=== PATIENT | male | born 1955 | race Caucasian/White ===

== ENCOUNTER 2017-03-24 03:18 | Emergency (ER) | payer OTHER, MEDICARE ==
[~2017-03-24] VITALS: Ht 193 cm; Wt 154.2 kg
--- NOTE | 2017-03-24 03:32 | ED GI/GU/ABDOMINAL COMPLAINT ---
History of Present Illness General Chief Complaint: Abdominal Pain/Flank Pain Stated Complaint: NAUSEA AND ABDOMINAL PAIN Source: patient, family Exam Limitations: no limitations Vital Signs & Intake/Output Vital Signs & Intake/Output Vital Signs Date Time Temp Pulse Resp B/P B/P Pulse O2 O2 Flow FiO2 Mean Ox Delivery Rate 03/24 0357 Room Air 03/24 0323 96.4 60 16 164/81 95 Allergies Coded Allergies: No Known Allergies (03/26/17) Reconcile Medications Cefpodoxime Proxetil 200 MG TABLET 1 TAB PO BID diverticulitis Please take until 04/04/17 Gabapentin 300 MG CAPSULE 1 CAP PO BEDTIME Neuropathy Gemfibrozil 600 MG TABLET 1 TAB PO BID DM (Reported) Insulin Aspart, Recombinant (Novolog Flexpen) 100 UNIT/ML INSULN.PEN DM ( Reported) Insulin Glargine,Hum.rec.anlog (Lantus Solostar) 100 UNIT/ML (3 ML) INSULN.PEN 30 UNIT SC QPM DM (Reported) Lisinopril/Hydrochlorothiazide (Lisinopril-Hctz 20-25 MG Tab) 20 MG-25 MG TABLET 1 TAB PO DAILY HTN (Reported) Metformin HCl 1,000 MG TABLET 1 TAB PO BID DM (Reported) Metronidazole (Flagyl) 500 MG TABLET 1 TAB PO TID DIVERTICULITIS Please take until 04/04/17 Omeprazole 20 MG CAPSULE.DR 1 CAP PO DAILY GERD (Reported) Ondansetron (Zofran Odt) 4 MG TAB.RAPDIS 1 TAB PO Q6 PRN NAUSEA Oxycodone HCl/Acetaminophen (Percocet 5-325 MG Tablet) 5 MG-325 MG TABLET 1 TAB PO Q4-6 PRN BREAKTHROUGH PAIN Pravastatin Sodium 20 MG TABLET 1 TAB PO DAILY HIGH CHOLESTEROL (Reported) Triage Nurses Notes Reviewed? yes Onset: Abrupt Duration: day(s): (2) Timing: recent history Quality/Severity: moderate, severe Location: left lower quadrant Radiation: no radiation No Modifying Factors: none HPI: This is a 61-year-old male with history of hypertension, dyslipidemia, insulin dependent diabetes presents to the ER for chief complaint of left lower quadrant abdominal pain for the past 2 days. States he had a fever of 101 earlier today. Positive nausea but no episodes of vomiting. Diminished appetite today. She feels last bowel movement was today within normal limits. No urinary symptoms. History of similar previous symptoms. Denies any history of abdominal surgery. He is a nonsmoker nondrinker. Last colonoscopy greater than 10 years ago at the [facility] and broken. He states was negative at that time. Past History Travel History Traveled to [place] past 21 day No Medical History Any Pertinent Medical History? see below for history Neurological: NONE EENT: NONE Cardiovascular: hypertension, hyperlipidemia Respiratory: NONE Gastrointestinal: NONE Hepatic: NONE Renal: NONE Musculoskeletal: NONE Psychiatric: NONE Endocrine: diabetes Other Medical Hx: FERNANDEZ'S PALSY Surgical History Surgical History: RIGHT ARM RECONSTRUCTION Psychosocial History What is your primary language [place]ian Tobacco Use: Never used ETOH Use: denies use Family History Hx Contributory? No Review of Systems Review of Systems Constitutional: Reports: fever. Denies: chills. EENTM: Reports: no symptoms. Respiratory: Denies: cough, short of breath. Cardiovascular: Denies: chest pain. GI: Reports: abdominal pain, nausea. Denies: constipation, diarrhea, vomiting. Genitourinary: Reports: no symptoms. Musculoskeletal: Reports: no symptoms. Skin: Reports: no symptoms. Neurological/Psychological: Reports: no symptoms. Hematologic/Endocrine: Denies: bruising, bleeding, polyuria, polydipsia. Immunologic/Allergic: Denies: splenectomy. All Other Systems: Reviewed and Negative Physical Exam Physical Exam General Appearance: well developed/nourished, alert, awake, mild distress, obese Head: atraumatic, normal appearance Eyes: Bilateral: normal appearance, PERRL, EOMI. Ears, Nose, Throat, Mouth: DRY MUCOUS MEMBRANES Neck: normal inspection, supple, normal alignment Respiratory: normal breath sounds, chest non-tender, no respiratory distress Cardiovascular: regular rate/rhythm Peripheral Pulses: 2+ radial (R), 2+ radial (L) Gastrointestinal: OBESE, SOFT, TENDER LEFT LOWER QUADRANT, NO REBOUND OR GUARDING Male Genitals: normal genitalia Neurologic/Psych: no motor/sensory deficits, awake, alert, oriented x 3 Skin: intact, normal color, warm/dry Core Measures ACS in differential dx? No Severe Sepsis Present: No Septic Shock Present: No Progress Differential Diagnosis: diverticulitis, ischemic bowel, inflamm bowel dis, UTI/ pyelo Plan of Care: Orders Procedure Date/time Status LACTIC ACID 03/24 0639 Active Add-on Test (ER Only) 03/24 0514 Active LACTIC ACID 05/07 0426 Active URINALYSIS 03/24 339 Active PARTIAL THROMBOPLASTIN TIME 03/24 339 Complete PROTHROMBIN TIME 03/24 339 Complete COMPREHENSIVE METABOLIC PANEL 03/24 339 Complete CBC WITHOUT DIFFERENTIAL 03/24 339 Complete EKG 03/24 331 Active Laboratory Tests 03/24/17 0445: Lactic Acid Pending 03/24/17 0347: Anion Gap 15, Estimated GFR > 60, BUN/Creatinine Ratio 20.0, Glucose 210 H, Calcium 9.0, Total Bilirubin 0.9, AST 24, ALT 38, Alkaline Phosphatase 42, Total Protein 7.3, Albumin 4.2, Globulin 3.1, Albumin/Globulin Ratio 1.4, PT 11.7, INR 1.12, APTT 32, CBC w Diff NO MAN DIFF REQ, RBC 3.91 L, MCV 91.4, MCH 31.2 H, RDW 12.8, MPV 7.9, Gran % 87.2 H, Lymphocytes % 10.0 L, Monocytes % 2.1, Eosinophils % 0.4, Basophils % 0.3, Absolute Granulocytes 8.0 H, Absolute Lymphocytes 0.9 L, Absolute Monocytes 0.2, Absolute Eosinophils 0, Absolute Basophils 0, PUBS MCHC 34.1 4:20 AM Patient reports minimal relief of nausea and pain. Phenergan, Dilaudid ordered. Labs, CT pending. MUCH IMPROVED AFTER DILAUDID. CT RESULTS DISCUSSED WITH PATIENT AND FAMILY MEMBER. WILL ATTEMPT PO MEDS AND GI FOLLOW UP. HE WILL RETURN IF WORSE. (NIC LAST,KASSI) Diagnostic Imaging: Viewed by Me: CT Scan. Discussed w/RAD: CT Scan. Radiology Impression: PATIENT: SANTI MCMILLAN PRESENT AGE: 61 PATIENT ACCOUNT NO: [id number] : 53 LOCATION: [facility] ORDERING PHYSICIAN: KASSI LUCERO MD SERVICE DATE: 03/24/17 EXAM TYPE: CAT - CT ABD & PELVIS W IV CONTRAST EXAMINATION: CT ABDOMEN AND PELVIS WITH CONTRAST CLINICAL INFORMATION: Left lower quadrant pain for 2 days. Fever and nausea. COMPARISON: None TECHNIQUE: Multidetector volumetric imaging was performed of the abdomen and pelvis before and after the IV administration of 95 mL of Optiray 320 intravenous contrast. Sagittal and coronal reformatted images were obtained on the technologist's workstation. DLP: 1330 mGy-cm FINDINGS: LUNG BASES: Minimal bibasilar atelectasis. Coronary artery calcifications. LIVER, GALLBLADDER, AND BILIARY TREE: The liver is enlarged, measuring 28 cm in CC dimension. The liver is normal in shape with uniformly decreased attenuation. No focal hepatic lesion or biliary ductal dilatation is present. Small gallstones are seen layering in the gallbladder lumen. No gallbladder wall thickening or pericholecystic fluid. PANCREAS: Unremarkable. SPLEEN: Unremarkable. ADRENAL GLANDS: Unremarkable. KIDNEYS AND URETERS: The kidneys are normal in size, shape , and attenuation. No hydronephrosis, hydroureter, or calculi seen. Bilateral symmetric perinephric stranding. Right lower pole renal cyst. BLADDER: Unremarkable. GASTROINTESTINAL TRACT: The stomach and small bowel are unremarkable. No obstruction. Normal appendix. There is colonic diverticulosis. There is wall thickening of the sigmoid colon with adjacent inflammation, consistent with diverticulitis. No fluid collection or free air. ABDOMINAL WALL: No significant hernia is appreciated. LYMPH NODES: Normal. VASCULAR: Unremarkable. PELVIC VISCERA: The prostate and seminal vesicles are unremarkable. OSSEOUS STRUCTURES: No acute or suspicious osseous abnormality. Mild degenerative changes in the hips and spine. IMPRESSION: Sigmoid diverticulitis. No free air or fluid collection. Hepatomegaly with hepatic steatosis. Cholelithiasis. DICTATED BY: VICK WILSON MD DATE/TIME DICTATED :03/24/17508 HOTEL SECURITY OFFICER:MICKY DATE/TIME TRANSCRIBED:03/24/17508 CONFIDENTIAL, DO NOT COPY WITHOUT APPROPRIATE AUTHORIZATION. < Electronically signed in Other Vendor System> SIGNED BY: VICK WILSON MD 03/24/17 0515 Initial ED EKG: NSR, INFERIOR FLAT T WAVES Departure Departure Time of Disposition: 522 Disposition: HOME OR SELF CARE Condition: Stable Clinical Impression Primary Impression: Sigmoid diverticulitis Secondary Impressions: Cholelithiasis Referrals: BRUNA LAST,ADAM Aponte (PCP/Family) Additional Instructions: Take the cipro and flagyl as directed. Zofran as needed for nausea. Take motrin or tylenol as needed for pain. Percocet for breakthrough pain. Follow up with Dr. Day in the office after your antibiotics are completed. Return to the ER for any changing or worsening symptoms. Departure Forms: Customer Survey General Discharge Information Prescriptions: Current Visit Scripts Ondansetron (Zofran Odt) 1 TAB PO Q6 PRN NAUSEA #20 TAB Oxycodone HCl/Acetaminophen (Percocet 5-325 MG Tablet) 1 TAB PO Q4-6 PRN BREAKTHROUGH PAIN #10 TAB
[2017-03-24 04:00] LABS: ABSOLUTE BASOPHIL COUNT 0 /CUMM (0.0-0.2); ABSOLUTE EOSINOPHIL COUNT 0 /CUMM (0.0-0.7); ABSOLUTE LYMPH COUNT 0.9 /CUMM (1.2-3.4); ABSOLUTE MONOCYTE COUNT 0.2 /CUMM (0.10-0.60); BASOPHIL % 0.3 % (0.0-2.0); EOSINOPHIL % 0.4 % (0-5); GRANULOCYTE % 87.2 % (42.2-75.2); HEMATOCRIT 35.8 % (42-52); MEAN CORPUSCULAR HGB 31.2 PG (27.0-31.0); MEAN CORPUSCULAR HGB CONC 34.1 G/DL (33.0-37.0); MEAN CORPUSCULAR VOLUME 91.4 FL (80.0-94.0); MEAN PLATELET VOLUME 7.9 FL (7.4-10.4); PLATELET COUNT 188 /CUMM (130-400); RBC DISTRIBUTION WIDTH 12.8 % (11.5-14.5); RED BLOOD CELL CT 3.91 /CUMM (4.70-6.10)
[2017-03-24 04:09] LABS: PT 11.7 SEC (9.4-12.5); PTT 32 SEC (25-37)
[2017-03-24 04:50] LABS: WHITE BLOOD CELL COUNT 9.2 /CUMM (4.8-10.8)
--- NOTE | 2017-03-24 05:15 | CT SCAN REPORT ---
EXAMINATION: CT ABDOMEN AND PELVIS WITH CONTRAST CLINICAL INFORMATION: Left lower quadrant pain for 2 days. Fever and nausea. COMPARISON: None TECHNIQUE: Multidetector volumetric imaging was performed of the abdomen and pelvis before and after the IV administration of 95 mL of Optiray 320 intravenous contrast. Sagittal and coronal reformatted images were obtained on the technologist's workstation. DLP: 1330 mGy-cm FINDINGS: LUNG BASES: Minimal bibasilar atelectasis. Coronary artery calcifications. LIVER, GALLBLADDER, AND BILIARY TREE: The liver is enlarged, measuring 28 cm in CC dimension. The liver is normal in shape with uniformly decreased attenuation. No focal hepatic lesion or biliary ductal dilatation is present. Small gallstones are seen layering in the gallbladder lumen. No gallbladder wall thickening or pericholecystic fluid. PANCREAS: Unremarkable. SPLEEN: Unremarkable. ADRENAL GLANDS: Unremarkable. KIDNEYS AND URETERS: The kidneys are normal in size, shape, and attenuation. No hydronephrosis, hydroureter, or calculi seen. Bilateral symmetric perinephric stranding. Right lower pole renal cyst. BLADDER: Unremarkable. GASTROINTESTINAL TRACT: The stomach and small bowel are unremarkable. No obstruction. Normal appendix. There is colonic diverticulosis. There is wall thickening of the sigmoid colon with adjacent inflammation, consistent with diverticulitis. No fluid collection or free air. ABDOMINAL WALL: No significant hernia is appreciated. LYMPH NODES: Normal. VASCULAR: Unremarkable. PELVIC VISCERA: The prostate and seminal vesicles are unremarkable. OSSEOUS STRUCTURES: No acute or suspicious osseous abnormality. Mild degenerative changes in the hips and spine. IMPRESSION: Sigmoid diverticulitis. No free air or fluid collection. Hepatomegaly with hepatic steatosis. Cholelithiasis.
[2017-03-24] MEDS ORDERED: ZOFRAN ODT4 M1 PO (05:27)
[2017-03-24] MEDS ORDERED: FLAGYL500 MG PO (05:27)
[2017-03-24] MEDS ORDERED: PERCOCET 5-3251 EACH PO (05:27)
[2017-03-24] MEDS ORDERED: CIPRO500 M1 PO (05:27)
[2017-03-24 05:40] VITALS: BP 159/80
== END 2017-03-24 05:41 ==
LOC: ERH 03:18
PROVIDERS: Emergency Medicine
DX: K57.30 Diverticulosis of large intestine without perforation or abscess without bleeding (principal); K80.20 Calculus of gallbladder without cholecystitis without obstruction
CPT/HCPCS: 74177; 96374; 96375; J2405; J2550

== ENCOUNTER 2017-03-26 04:46 | Inpatient (IN) | payer OTHER, MEDICARE ==
[~2017-03-26] VITALS: Ht 193 cm; Wt 149.7 kg
[~2017-03-26 04:46] MED LIST: CIPRO500 M1 PO; FLAGYL500 MG PO; PERCOCET 5-3251 EACH PO; ZOFRAN ODT4 M1 PO
[2017-03-26] MEDS ORDERED: LANTUS SOL100 UNIT/1 SC (04:51)
[2017-03-26] MEDS ORDERED: GABAPENTIN300 M2 PO ×2 (04:51→14:35)
[2017-03-26] MEDS ORDERED: LISINOPRIL-HCT1 EAC1 PO (04:52)
[2017-03-26] MEDS ORDERED: GEMFIBROZIL600 M1 PO (04:52)
[2017-03-26] MEDS ORDERED: LISINOPRIL10 M1 PO (04:52)
[2017-03-26] MEDS ORDERED: PRAVASTATIN SOD20 M2 PO (04:52)
[2017-03-26] MEDS ORDERED: METFORMIN HCL1000 M1 PO (04:52)
[2017-03-26] MEDS ORDERED: OMEPRAZOLE20 M2 PO (04:52)
[2017-03-26] MEDS ORDERED: FUROSEMIDE20 M1 PO (04:52)
[2017-03-26] MEDS ORDERED: NOVOLOG FL100 UNIT/1 (04:53)
--- NOTE | 2017-03-26 04:57 | ED GI/GU/ABDOMINAL COMPLAINT ---
History of Present Illness General Chief Complaint: Abdominal Pain/Flank Pain Stated Complaint: ABD PAIN Source: patient, family, old records Exam Limitations: no limitations Vital Signs & Intake/Output Vital Signs & Intake/Output Vital Signs Date Time Temp Pulse Resp B/P B/P Pulse O2 O2 Flow FiO2 Mean Ox Delivery Rate 03/26 731 69 20 166/85 95 Room Air 03/26 0455 98 Room Air 03/265 96.4 68 18 156/99 97 Room Air Allergies Coded Allergies: No Known Allergies (03/26/17) Reconcile Medications Ciprofloxacin HCl (Cipro) 500 MG TABLET 1 TAB PO BID INFECTION Furosemide 20 MG TABLET 1 TAB PO DAILY (Reported) Gabapentin 300 MG CAPSULE 1 CAP PO TID (Reported) Gemfibrozil 600 MG TABLET 1 TAB PO BID DM (Reported) Insulin Aspart, Recombinant (Novolog Flexpen) 100 UNIT/ML INSULN.PEN DM ( Reported) Insulin Glargine,Hum.rec.anlog (Lantus Solostar) 100 UNIT/ML (3 ML) INSULN.PEN 30 UNIT SC QPM DM (Reported) Lisinopril 10 MG TABLET 1 TAB PO DAILY HTN (Reported) Lisinopril/Hydrochlorothiazide (Lisinopril-Hctz 20-25 MG Tab) 20 MG-25 MG TABLET 1 TAB PO DAILY HTN (Reported) Metformin HCl 1,000 MG TABLET 1 TAB PO BID DM (Reported) Metronidazole (Flagyl) 500 MG TABLET 1 TAB PO TID DIVERTICULITIS Omeprazole 20 MG CAPSULE.DR 1 CAP PO DAILY GERD (Reported) Ondansetron (Zofran Odt) 4 MG TAB.RAPDIS 1 TAB PO Q6 PRN NAUSEA Oxycodone HCl/Acetaminophen (Percocet 5-325 MG Tablet) 5 MG-325 MG TABLET 1 TAB PO Q4-6 PRN BREAKTHROUGH PAIN Pravastatin Sodium 20 MG TABLET 1 TAB PO DAILY HIGH CHOLESTEROL (Reported) Triage Note: TRIAGE: PATIENT TO ER FROM HOME REPORTING "HERE 2 NIGHTS AGO AND THE PAIN HAS BEEN THE SAME. IT'S DULL AND DRIVING ME CRAZY." DX W/ DIVERTICULITIS, GIVEN RX FOR ABX, PAIN MEDS, ANTI-NAUSEA MEDS. PATIENT REPORTS "KEEP TAKING THEM AND IT'S NOT HELPING." MD GANNON AT BEDSIDE FOR EVAL. Triage Nurses Notes Reviewed? yes HPI: Patient presents with increasing pain in the left mid and left lower quadrant. Patient was seen here on the seventh and was diagnosed with diverticulitis. Patient has been taking antibiotics as well as pain medication however he states the pain has been worsening. Positive chills. He has not taken his temperature. Positive nausea and anorexia but no vomiting. No diarrhea. No blood in his vomitus or stool. Patient denies dysuria or hematuria. (JAGDEEP LAST,MONIQUE Lynch) Past History Travel History Traveled to [place] past 21 day No Medical History Any Pertinent Medical History? see below for history Neurological: NONE EENT: NONE Cardiovascular: hypertension, hyperlipidemia Respiratory: NONE Gastrointestinal: NONE Hepatic: NONE Renal: NONE Musculoskeletal: NONE Psychiatric: NONE Endocrine: diabetes Blood Disorders: NONE Cancer(s): NONE COIN COLLECTOR/Reproductive: NONE Other Medical Hx: FERNANDEZ'S PALSY Surgical History Surgical History: RIGHT ARM RECONSTRUCTION Psychosocial History What is your primary language [place] Tobacco Use: Quit >30 days ago ETOH Use: denies use Illicit Drug Use: denies illicit drug use Family History Hx Contributory? No (JAGDEEP LAST,MONIQUE Lynch) Review of Systems Review of Systems Constitutional: Reports: see HPI, chills. EENTM: Reports: no symptoms. Respiratory: Reports: no symptoms. Cardiovascular: Reports: no symptoms. GI: Reports: see HPI, abdominal pain, nausea. Genitourinary: Reports: no symptoms. Musculoskeletal: Reports: no symptoms. Skin: Reports: no symptoms. Neurological/Psychological: Reports: no symptoms. Hematologic/Endocrine: Reports: no symptoms. Immunologic/Allergic: Reports: no symptoms. All Other Systems: Reviewed and Negative (JAGDEEP LAST,MONIQUE Lynch) Physical Exam Physical Exam General Appearance: well developed/nourished, alert, awake, moderate distress Head: atraumatic, normal appearance Eyes: Bilateral: PERRL, EOMI. Ears, Nose, Throat, Mouth: hearing grossly normal, DRY MUCOSA Neck: normal inspection, supple, full range of motion Respiratory: normal breath sounds, chest non-tender, no respiratory distress, lungs clear Cardiovascular: regular rate/rhythm, normal peripheral pulses Gastrointestinal: normal bowel sounds, soft, no organomegaly, tenderness (LEFT MID QUAD) Back: normal inspection, normal range of motion Extremities: normal range of motion Neurologic/Psych: no motor/sensory deficits, awake, alert, oriented x 3, normal mood/affect Skin: intact, normal color, warm/dry Core Measures ACS in differential dx? No Severe Sepsis Present: No Septic Shock Present: No (JAGDEEP LAST,MONIQUE Lynch) Progress Differential Diagnosis: diverticulitis, gastritis, hepatitis, ureterolithiasis, UTI/pyelo Plan of Care: Orders Procedure Date/time Status Nothing by Mouth 03/26 L Active ED Holding Orders 03/26 808 Active Admit to inpatient 03/26 808 Active Vital Signs 03/26 808 Active Code Status 03/26 808 Active TROPONIN LEVEL 03/26 457 Complete LIPASE 03/26 457 Complete COMPREHENSIVE METABOLIC PANEL 03/26 457 Complete CBC WITHOUT DIFFERENTIAL 03/26 457 Complete AMYLASE 03/26 457 Complete EKG 03/26 457 Active Current Medications Sig/Bunny Start time Last Medication Dose Stop Time Status Admin Ampicillin Sodium/ 3,000 MG ONCE ONE 03/26 815 AC 03/26 Sulbactam Sodium 03/26 844 0810 (Unasyn) Sodium Chloride 100 ML (Normal Saline 0.9%) Laboratory Tests 03/26/17 0520: Anion Gap 14, Estimated GFR > 60, BUN/Creatinine Ratio 17.8, Glucose 187 H, Calcium 9.2, Total Bilirubin 0.9, AST 45, ALT 52, Alkaline Phosphatase 43, Troponin I 0.01, Total Protein 7.1, Albumin 4.1, Globulin 3.0, Albumin/Globulin Ratio 1.4, Amylase 46, Lipase 97, CBC w Diff NO MAN DIFF REQ, RBC 4.09 L, MCV 92.1, MCH 31.1 H, RDW 12.5, MPV 7.0 L, Gran % 77.7 H, Lymphocytes % 15.0 L, Monocytes % 5.5, Eosinophils % 1.6, Basophils % 0.2, Absolute Granulocytes 4.5, Absolute Lymphocytes 0.9 L, Absolute Monocytes 0.3, Absolute Eosinophils 0.1, Absolute Basophils 0, PUBS MCHC 33.8 Initial ED EKG: NSR, nonspecific ST T wave chg Prior EKG: unchanged Hand-Off Endorsed To: MICAELA FRANCIS DO Endorsed Time: 0700 Pending: CT (JAGDEEP LAST,MONIQUE Lynch) Departure Departure Disposition: STILL A PATIENT Condition: Stable Clinical Impression Primary Impression: Lower abdominal pain, unspecified Referrals: BRUNA LAST,ADAM Aponte (PCP/Family) Departure Forms: Customer Survey General Discharge Information (JAGDEEP LAST,MONIQUE Lynch) Departure Comments 03/26/17 The patient was signed out to me by Dr. Gannon. He has ongoing pain and is failing outpatient treatment with by mouth antibiotics. He is requiring IV Dilaudid for pain control. He will therefore be admitted to the hospital for IV antibiotics. IMPRESSION: 1. Redemonstrated sigmoid diverticulitis. No pericolonic fluid collection or free air identified. 2. Cholelithiasis. 3. Hepatomegaly with suggestion of fatty infiltration. 4. Coronary artery calcifications. Correlation with cardiac risk factors is recommended. DICTATED BY: LAURA MOELLER MD DATE/TIME DICTATED:03/26/17729 SENIOR SITE MANAGER:MICKY DATE/TIME TRANSCRIBED:03/26/17729 CONFIDENTIAL, DO NOT COPY WITHOUT APPROPRIATE AUTHORIZATION. <Electronically signed in Other Vendor System> SIGNED BY: LAURA MOELLER MD 03/26/17 0742 Admission Note Spoke With: ADDY HOOKS MD Documentation of Exam: Documentation of any treatments & extenuating circumstances including Concerns Regarding Discharge (functional status, medication knowledge or non-compliance, living conditions, etc.) that warrant an admission rather than observation: [The patient needs admission for IV narcotics for pain control, IV antibiotics, GI consultation] (MICAELA FRANCIS DO)
[2017-03-26 05:33] LABS: ABSOLUTE BASOPHIL COUNT 0 /CUMM (0.0-0.2); ABSOLUTE EOSINOPHIL COUNT 0.1 /CUMM (0.0-0.7); ABSOLUTE GRANULOCYTE CT 4.5 /CUMM (1.4-6.5); ABSOLUTE LYMPH COUNT 0.9 /CUMM (1.2-3.4); ABSOLUTE MONOCYTE COUNT 0.3 /CUMM (0.10-0.60); BASOPHIL % 0.2 % (0.0-2.0); EOSINOPHIL % 1.6 % (0-5); GRANULOCYTE % 77.7 % (42.2-75.2); HEMATOCRIT 37.7 % (42-52); MEAN CORPUSCULAR HGB 31.1 PG (27.0-31.0); MEAN CORPUSCULAR HGB CONC 33.8 G/DL (33.0-37.0); MEAN CORPUSCULAR VOLUME 92.1 FL (80.0-94.0); PLATELET COUNT 225 /CUMM (130-400); RBC DISTRIBUTION WIDTH 12.5 % (11.5-14.5); RED BLOOD CELL CT 4.09 /CUMM (4.70-6.10); WHITE BLOOD CELL COUNT 5.7 /CUMM (4.8-10.8)
--- NOTE | 2017-03-26 07:42 | CT SCAN REPORT ---
EXAMINATION: CT ABDOMEN AND PELVIS WITH CONTRAST CLINICAL INFORMATION: Worsening left lower quadrant pain COMPARISON: 03/24/2017 TECHNIQUE: Multidetector volumetric imaging was performed of the abdomen and pelvis before and after the IV administration of 95 mL of Optiray 320 intravenous contrast. Sagittal and coronal reformatted images were obtained on the technologist's workstation. DLP: 1679.05 mGy-cm FINDINGS: LUNG BASES: The visualized lung bases are unremarkable. Coronary artery calcifications are noted. LIVER, GALLBLADDER, AND BILIARY TREE: Hepatomegaly is again demonstrated with diffuse low-attenuation suggesting fatty infiltration. No focal hepatic lesion or biliary ductal dilatation is present. Cholelithiasis is noted. PANCREAS: Unremarkable. SPLEEN: Unremarkable. ADRENAL GLANDS: Unremarkable. KIDNEYS AND URETERS: The kidneys are normal in size, shape, and attenuation. There is a redemonstrated right lower pole renal cyst measuring approximately 4.6 cm in diameter. No hydronephrosis, hydroureter, or calculi seen. No perinephric stranding. BLADDER: Unremarkable. GASTROINTESTINAL TRACT: There is colonic diverticulosis with redemonstrated pericolonic stranding adjacent to the proximal to mid sigmoid colon, in keeping with diverticulitis. This appearance is similar to 03/24/2017, with no free air or pericolonic fluid collection identified. No evidence of bowel obstruction. The small bowel appears unremarkable. The appendix is unremarkable. ABDOMINAL WALL: No significant hernia is appreciated. LYMPH NODES: Normal. VASCULAR: Mild scattered atherosclerotic calcifications are present. PELVIC VISCERA: Unremarkable. OSSEOUS STRUCTURES: Degenerative changes are noted in the spine. IMPRESSION: 1. Redemonstrated sigmoid diverticulitis. No pericolonic fluid collection or free air identified. 2. Cholelithiasis. 3. Hepatomegaly with suggestion of fatty infiltration. 4. Coronary artery calcifications. Correlation with cardiac risk factors is recommended.
--- NOTE | 2017-03-26 08:46 | History & Physical ---
JUNIOR MCCULLOUGH 03/26/17 0845: General Information and HPI MD Statement: I have seen and personally examined SANTI MCMILLAN and documented this H&P. The patient is a 61 year old M who presented with a patient stated chief complaint of [abdominal pain]. Source of Information: patient Exam Limitations: no limitations History of Present Illness: This is a 61-year-old morbidly obese male with past medical history of hypertension, hyperlipidemia, diabetes mellitus complicated with diabetes complicated with diabetic neuropathy and diabetic retinpathy (previous retinal detachment) him in with chief complaint of worsening abdominal pain since 7 days prior to admission. The the patient has never had similar pain before, however this time he comes in with severe abdominal pain that is dull in nature, generally diffuse but occasionally more worse in the epigastrium and the lower abdomen, does not move anywhere, he tried taking the medication that he was prescribed from the ER however none of the medications including Zofran, Percocet as well as Cipro and Flagyl helped. He says that passing gas and having a bowel movement makes his pain a little better however it has been progressively worsening. He was seen in the ER 2 days prior to admission, treated for diverticulitis was by mouth Cipro, Flagyl, was given Zofran when necessary for nausea and Percocet, Motrin and Tylenol. He was asked to follow up with GI Dr. Day and PCP.However patient continued to have worsening abdominal pain in spite of the treatment, continued to have dry heaving, nausea, alternating diarrhea and constipation and therefore came back into the emergency department. He notes that he had a meal outside with family at a sea food restaurant , however as per him it had no relation to the pain as the pain was present was present even prior to eating out. He follows up with Dr. Mcfarland as his PCP and Dr. moffett for his diabetes. His last colonoscopy could easily have been 20 years back as per the patient. Denied any fever, no sick contact, any similar pain prior, chest pain, vomiting, reports occasional streaks of blood once in a while, no black stools. Allergies/Medications Allergies: Coded Allergies: No Known Allergies (03/26/17) Home Med list Ciprofloxacin HCl (Cipro) 500 MG TABLET 1 TAB PO BID INFECTION Gabapentin 300 MG CAPSULE 1 CAP PO TID (Reported) Gemfibrozil 600 MG TABLET 1 TAB PO BID DM (Reported) Insulin Aspart, Recombinant (Novolog Flexpen) 100 UNIT/ML INSULN.PEN DM ( Reported) Insulin Glargine,Hum.rec.anlog (Lantus Solostar) 100 UNIT/ML (3 ML) INSULN.PEN 30 UNIT SC QPM DM (Reported) Lisinopril/Hydrochlorothiazide (Lisinopril-Hctz 20-25 MG Tab) 20 MG-25 MG TABLET 1 TAB PO DAILY HTN (Reported) Metformin HCl 1,000 MG TABLET 1 TAB PO BID DM (Reported) Metronidazole (Flagyl) 500 MG TABLET 1 TAB PO TID DIVERTICULITIS Omeprazole 20 MG CAPSULE.DR 1 CAP PO DAILY GERD (Reported) Ondansetron (Zofran Odt) 4 MG TAB.RAPDIS 1 TAB PO Q6 PRN NAUSEA Oxycodone HCl/Acetaminophen (Percocet 5-325 MG Tablet) 5 MG-325 MG TABLET 1 TAB PO Q4-6 PRN BREAKTHROUGH PAIN Pravastatin Sodium 20 MG TABLET 1 TAB PO DAILY HIGH CHOLESTEROL (Reported) Compliance With Home Meds: FAIR Past History Travel History Traveled to [place] past 21 day No Medical History Neurological: NONE EENT: NONE Cardiovascular: hypertension, hyperlipidemia Respiratory: NONE Gastrointestinal: NONE Hepatic: NONE Renal: NONE Musculoskeletal: NONE Psychiatric: NONE Endocrine: diabetes Blood Disorders: NONE Cancer(s): NONE VALIDATION CONSULTANT/Reproductive: NONE Other Medical Hx: FERNANDEZ'S PALSY Surgical History Surgical History: RIGHT ARM RECONSTRUCTION Past Family/Social History Family History Relations & Conditions if any FH: diabetes mellitus MOTHER FATHER Psychosocial History Where do you live? Home Who Do You Live With? spouse, child Services at Home: None Primary Language: Danish Smoking Status: Never Smoked ETOH Use: denies use Illicit Drug Use: denies illicit drug use Functional Ability ADLs Independent: dressing, eating, toileting, bathing. Ambulation: independent, doesnt walk a lot IADLs Independent: shopping, housework, finances, food prep, telephone, transportation , medication admin. Employment History Employment Retired Profession/Employer otr van cdl truck driver Review of Systems Review of Systems Constitutional: Reports: malaise. Denies: chills, diaphoresis, fever, weakness, unexplained weight loss. EENTM: Denies: blurred vision, double vision, visual changes, eye pain. Cardiovascular: Denies: chest pain, edema, orthopena, palpitations, peripheral edema, syncope. Respiratory: Denies: cough, hemoptysis, orthopnea, short of breath, sputum production, stridor, wheezing. GI: Reports: abdominal pain, bloating, constipation, diarrhea, nausea. Denies: bloody stool, vomiting, steatorrhea. Genitourinary: Reports: hesitation. Denies: discharge, dysuria, frequency, hematuria. Musculoskeletal: Reports: joint pain. Denies: back pain, gout, joint swelling, muscle pain. Skin: Denies: cysts, change in skin color, change in hair/nails, dryness, erythema. Neurological/Psychological: Reports: no symptoms. Hematologic/Endocrine: Reports: no symptoms. Immunologic/Allergic: Reports: no symptoms. All Other Systems: Reviewed and Negative Exam & Diagnostic Data Last 24 Hrs of Vital Signs/I&O Vital Signs Date Time Temp Pulse Resp B/P B/P Pulse O2 O2 Flow FiO2 Mean Ox Delivery Rate 03/26 0731 69 20 166/85 95 Room Air 03/26 0455 98 Room Air 03/26 0455 96.4 68 18 156/99 97 Room Air Intake & Output 03/26 1600 03/26 0800 03/26 0000 Intake Total 1000 Output Total Balance 1000 Intake, IV 1000 Patient 149.685 kg Weight Weight Reported by Patient Measurement Method Physical Exam General Appearance Alert, Oriented X3, Cooperative, Mild Distress Skin No Rashes, No Breakdown, No Significant Lesion, b\l lower extremity diffuse skin pigmentation 2/2 to ?diabetic nueropathy Skin Temp/Moisture Exam: Warm/Dry Sepsis Skin Exam (color): Normal for Ethnicity HEENT Atraumatic, PERRLA, EOMI Neck Supple, No JVD Cardiovascular Normal S1, Normal S2, No Murmurs Lungs Clear to Auscultation, Normal Air Movement Abdomen Normal Bowel Sounds, Soft, No Tenderness, slight pain in lower abdoemn on deep palpation. Neurological Strength at 5/5 X4 Ext, Normal Tone, Sensation Intact, Cranial Nerves 3-12 NL, Reflexes 2+ Extremities No Clubbing, No Cyanosis, Normal Pulses Vascular Normal Pulses Last 24 Hrs of Labs/Steve: Laboratory Tests 03/26/17 0520: Anion Gap 14, Estimated GFR > 60, BUN/Creatinine Ratio 17.8, Glucose 187 H, Calcium 9.2, Magnesium 1.8, Total Bilirubin 0.9, AST 45, ALT 52, Alkaline Phosphatase 43, Troponin I 0.01, Total Protein 7.1, Albumin 4.1, Globulin 3.0, Albumin/Globulin Ratio 1.4, Amylase 46, Lipase 97, CBC w Diff NO MAN DIFF REQ, RBC 4.09 L, MCV 92.1, MCH 31.1 H, RDW 12.5, MPV 7.0 L, Gran % 77.7 H, Lymphocytes % 15.0 L, Monocytes % 5.5, Eosinophils % 1.6, Basophils % 0.2, Absolute Granulocytes 4.5, Absolute Lymphocytes 0.9 L, Absolute Monocytes 0.3, Absolute Eosinophils 0.1, Absolute Basophils 0, PUBS MCHC 33.8 Microbiology 03/26 950 URINE ROUT: Urine Culture - ORD 03/26 950 STOOL: Stool Culture - ORD 03/26 950 BLOOD: Blood Culture - ORD 03/26 950 BLOOD: Blood Culture - ORD Diagnostic Data EKG Results Normal sinus rhythm, rate of 68, prolonged ID with 212, first-degree heart block , QTC of 426 Other Results DD abdomen and pelvis redemonstrated sigmoid diverticulitis, no pericolonic fluid collection of free air identified, cholelithiasis, fatty infiltration with hepatomegaly and some coronary artery calcification. Assessment/Plan Assessment: In summary this is 61-year-old morbidly obese male with past medical history of hypertension, hyperlipidemia, diabetes mellitus complicated with diabetes neuropathy and retinopathy came in with chief complaint of worsening abdominal pain which is dull and diffuse all over the abdomen worsened in the epigastrium and lower abdomen, previously seen in the emergency department 2 days prior to admission, discharged on by mouth Cipro, Flagyl, Zofran and Percocet Motrin and Tylenol, comes back to the ER after failing outpatient treatment and continuing worsening abdominal pain. The abdominal pain is also associated with alternating diarrhea and constipation. Currently the patient is constipated. Vitals on admission Tmax of 96.4, pulse of 68, respiration of 20, blood pressure 156/99, he was 97% saturating on room air. Relevant labs white count normal, H/H stable, platelet normal , electrolytes within normal range, kidney function tests 16/0.9, glucose of 187, calcium 9.2, total protein 7.1 with albumin 4.1, liver function tests normal, amylase 46 and lipase 97, CT abdominal and pelvis showed sigmoid diverticulitis with no pericolonic fluid collection, cholelithiasis, fatty infiltration with hepatomegaly and coronary artery calcification. We'll admit patient to general medicine floor secondary to worsening abdominal pain with failed outpatient treatment of presumably sigmoid diverticulitis. Other differential could be severe gastro-esophageal reflux disease, diabetic gastroparesis, ischemia bowel disease or irritable bowel syndrome. #1 Abdominal pain secondary to sigmoid diverticulitis. * Continue to monitor vitals every shift * ct monitoring intakes and output. * Keep the patient nothing by mouth for now for bowel rest, advance diet as tolerated. * Will start IV ceftriaxone and Flagyl for suspected sigmoid diverticulitis ( failed cipro and flagy as OP) * Check stool cultures. * Follow blood cultures and urine cultures. * Continue to follow white count, and does not meet sepsis criteria at this point,will check lactic acid * bowel rest advance diet as tolerated. * follow stool cultures. #2 history of diabetes mellitus with diabetic neuropathy and retinopathy. * Meghann patient is nothing by mouth for now, continue fingerstick monitoring every 6. * Nothing by mouth Novolin sliding scale for * Patient takes 30 units of Lantus at bedtime, will start at 80% of the home dosage 12 units twice a day of Levemir for now. * Patient follows up with Dr. moffett as outpatient. * If sugar continues to be uncontrolled, can consider consult with Dr. moffett. * Once the patient's diet is advanced, Novolin can be changed to NovoLog. * As per patient's CMR patient was prescribed gabapentin 3 times a day, on reviewing medical records on [employer] it was noted to be gabapentin once daily however the patient and his , think that this was discontinued and a new medication was started. We'll need to clarify this. #3 history of hypertension. * Patient takes a combination of lisinopril and hydrochlorothiazide. * As the patient is nothing by mouth and slightly high blood pressure we are holding it off for now. * If the blood pressure continues to rise can consider restarting the home antihypertensive medications. #4 history of dyslipidemia. * We'll hold the gemfibrozil for now. * Continue statin. Nothing by mouth for now. DVT prophylaxis with Lovenox. [id number] in severe pain pathway ordered. Full code As Ranked By This Provider Problem List: 1. Sigmoid diverticulitis 2. Lower abdominal pain, unspecified 3. Dyslipidemia 4. Hypertension 5. Diabetes Core Measures/Miscellaneous Acute Coronary Syndrome ACS Diagnosis: No Cerebrovascular Accident CVA/TIA Diagnosis: No Congestive Heart Failure CHF Diagnosis: No Venous Thromboembolism VTE Risk Factors: Age > 40 [facility] d/t: No contraindications No VTE Pharm Prophylaxis d/t: No contraindications VTE Diagnosis: No VTE Type: NONE VTE Confirmed by (Test): NONE Severe Sepsis Severe Sepsis Present: No Septic Shock Septic Shock Present: No Miscellaneous Documentation Attending Case Discussed With: MARTY MENDOSA MD Primary Care Physician: ADAM MCFARLAND MD Patient sees these Specialists DR MOFFETT AND DR MCFARLAND Level of Patient Care: General Medicine Resident Review Statement Resident Statement: admitted by resident MARTY MENDOSA 03/26/17 1345: Attending MD Review Statement Attending Statement Attending MD Statement: examined this patient, discuss w/resident/PA/MUSTANGER, agreed w/resident/PA/MUSTANGER, discussed with family, reviewed EMR data (avail), discussed with nursing, discussed with case mgmt, reviewed images, amended to note
[2017-03-26 20:56] VITALS: BP 142/90
[2017-03-27 06:28] VITALS: BP 150/82
--- NOTE | 2017-03-27 06:38 | PN- Housestaff ---
CHERY LAST,MONTY 03/27/17 0638: Subjective Follow-up For: sigmoid diverticulitis Subjective: Pt was seen today, reports no abdominal pain but was slightly tender on deep palpation of lower abdomen he complains of migraine headache , usually takes excedrine at home, but we don' t have it, so we gave him fiorecet instead, which is helping him with the headache. he reports some nausea but no vomiting, improved from yesterday. agreeable to have diet advanced to clear liquid. insulin changed . ivf stopped. labs reviewed, k 3.7, repleted with 1x kdur. Review of Systems Constitutional: Reports: see HPI. Objective Last 24 Hrs of Vital Signs/I&O Vital Signs Date Time Temp Pulse Resp B/P B/P Pulse O2 O2 Flow FiO2 Mean Ox Delivery Rate 03/27 1034 75 158/88 03/27 0628 98.2 60 20 150/82 96 Room Air 03/26 2056 97.9 75 20 142/90 95 03/26 1956 97.8 71 18 184/88 96 Room Air 03/26 1524 97.0 80 20 160/102 03/26 1503 160/102 03/26 1331 216/102 Intake & Output 03/27 1600 03/27 0800 03/27 0000 Intake Total 600 150 Output Total 500 Balance 100 150 Intake, IV 600 150 Output, Urine 500 Patient 149.685 kg Weight Physical Exam General Appearance: Alert, Oriented X3, Cooperative Cardiovascular: Regular Rate, Normal S1, Normal S2, No Murmurs Lungs: Clear to Auscultation, Normal Air Movement Abdomen: Normal Bowel Sounds, Soft, slightly tender in the lower abdomen Neurological: Normal Speech Extremities: 1+ pitting edema bilateral lower extremities Current Medications: Current Medications Sig/Bunny Start time Last Medication Dose Route Stop Time Status Admin Acetaminophen 650 MG .STK-MED ONE 03/27 0415 DC PO 03/27 0416 Acetaminophen 650 MG Q6P PRN 03/26 1000 AC 03/27 PO 0415 Acetaminophen/ 1 TAB Q4P PRN 03/27 0745 AC 03/27 Butalbital/Caffeine PO 0831 Ceftriaxone Sodium 2,000 MG DAILY 03/27 1000 AC 03/27 IV 1035 Dextrose/Sodium 1,000 ML Q13H 03/26 1100 DC 03/27 Chloride IV 0009 Docusate Sodium 100 MG DAILY 03/27 1145 AC PO Enoxaparin Sodium 40 MG DAILY 03/26 1000 AC 03/27 SC 1035 Gabapentin 300 MG AT BEDTIME 03/26 2200 AC 03/26 PO 2225 Gemfibrozil 600 MG BID 03/27 1000 AC 03/27 PO 1201 Hydrochlorothiazide 25 MG DAILY 03/26 1512 AC 03/27 PO 1034 Hydrochlorothiazide 25 MG DAILY 03/26 1445 CAN PO Insulin Aspart 0 AT BEDTIME 03/27 2200 AC SC Insulin Aspart 0 TIDAC 03/27 1200 AC SC Insulin Detemir 30 UNITS BID 03/27 1000 AC 03/27 SC 1047 Insulin Detemir 12 UNITS BID 03/26 1049 DC 03/26 SC 2226 Insulin Human Regular 2 UNITS .STK-MED ONE 03/27 0007 DC IV 03/27 0008 Insulin Human Regular 0 Q6 03/26 1200 DC 03/27 SC 0559 Lisinopril 0 .STK-MED ONE 03/26 1513 DC PO Lisinopril 20 MG DAILY 03/26 1430 AC 03/27 PO 1034 Metronidazole 500 MG IQ8 03/26 1600 AC 03/27 N/A 1 UNIT IV 0832 Morphine Sulfate 0 .STK-MED ONE 03/26 1341 DC .ROUTE Morphine Sulfate 2 MG Q4P PRN 03/26 1000 AC 03/26 IV 1341 Omeprazole 40 MG DAILY AC 03/26 0953 AC 03/27 PO 0559 Ondansetron HCl 4 MG Q6P PRN 03/26 0945 AC PO Oxycodone HCl 5 MG Q6P PRN 03/26 1000 AC 03/26 PO 2222 Polyethylene Glycol 17 GM DAILY 03/27 1145 AC PO Potassium Chloride 40 MEQ ONCE ONE 03/27 0845 DC 03/27 PO 03/27 0846 1034 Pravastatin Sodium 20 MG 1700 03/26 1700 AC 03/26 PO 1724 Senna 187 MG AT BEDTIME 03/27 220 AC PO Last 24 Hrs of Lab/Steve Results Last 24 Hrs of Labs/Mics: Laboratory Tests 03/27/17 0600: Anion Gap 11, Estimated GFR > 60, BUN/Creatinine Ratio 15.6, Magnesium 1.9, CBC w Diff NO MAN DIFF REQ, RBC 3.83 L, MCV 91.3, MCH 31.6 H, RDW 12.7, MPV 7.5, Gran % 66.2, Lymphocytes % 22.8, Monocytes % 8.8, Eosinophils % 1.9, Basophils % 0.3, Absolute Granulocytes 3.8, Absolute Lymphocytes 1.3, Absolute Monocytes 0.5 , Absolute Eosinophils 0.1, Absolute Basophils 0, PUBS MCHC 34.6 03/26/17 1513: Lactic Acid 0.9 03/26/17 1346: Lactic Acid Cancelled Assessment/Plan Assessment: 61-year-old morbidly obese male with past medical history of hypertension, hyperlipidemia, diabetes mellitus complicated with diabetes neuropathy and retinopathy came in with chief complaint of worsening abdominal pain which is dull and diffuse all over the abdomen worsened in the epigastrium and lower abdomen, previously seen in the emergency department 2 days prior to admission, discharged on by mouth Cipro, Flagyl, Zofran and Percocet Motrin and Tylenol, comes back to the ER after failing outpatient treatment and continuing worsening abdominal pain. The abdominal pain is also associated with alternating diarrhea and constipation, on admission constipated. Vitals on admission Tmax of 96.4, pulse of 68, respiration of 20, blood pressure 156/99, he was 97% saturating on room air. Relevant labs white count normal, H/H stable, platelet normal , electrolytes within normal range, kidney function tests 16/0.9, glucose of 187, calcium 9.2, total protein 7.1 with albumin 4.1, liver function tests normal, amylase 46 and lipase 97, CT abdominal and pelvis showed sigmoid diverticulitis with no pericolonic fluid collection, cholelithiasis, fatty infiltration with hepatomegaly and coronary artery calcification. # Sigmoid diverticulitis. * Clear liquid diet , will advance as tolerated * Continue IV ceftriaxone and Flagyl for suspected sigmoid diverticulitis ( failed PO cipro and flagy as OP) * F/U stool cultures, blood cultures and urine cultures. # History of diabetes mellitus with diabetic neuropathy and retinopathy. - Patient follows up with Dr. moffett as outpatient. * Novolog ss tidac/qhs * Continue 30 units of Lantus at bedtime * Continue gabapentin 300 at bedtime # History of hypertension. * Continue lisinopril and hydrochlorothiazide. # history of dyslipidemia. * Continue gemfibrozil Diet: Clear liquid DVT prophylaxis with Lovenox. [id number] in severe pain pathway ordered Full code Problem List: 1. Sigmoid diverticulitis Pain Ratin Pain Location: none Pain Goal: Remain pain free Pain Plan: mild to mod pp Tomorrow's Labs & Rationales: bep for electrolyte repletement DVT/Prophylaxis: mechanical, pharmacological DEONDREMARTY Thrasher 03/27/17 1143: Attending MD Review Statement Attending Statement Attending MD Statement: examined this patient, discuss w/resident/PA/RIVER CROSSING SUPERVISOR, agreed w/resident/PA/RIVER CROSSING SUPERVISOR, discussed with family, reviewed EMR data (avail), discussed with nursing, discussed with case mgmt, reviewed images, amended to note Attending Assessment/Plan: 61 o/m with acute sigmoid diverticultiis failed o/p treatment comes with nausea and increasing abdominal pain, admitted to inpatient medical services, c/w i/v abx, advance diet as tolerated. pain control, IVF and dietary fibre. referral to GI at d/c o/p f/u.
[2017-03-27 07:51] LABS: ABSOLUTE BASOPHIL COUNT 0 /CUMM (0.0-0.2); ABSOLUTE EOSINOPHIL COUNT 0.1 /CUMM (0.0-0.7); ABSOLUTE GRANULOCYTE CT 3.8 /CUMM (1.4-6.5); ABSOLUTE LYMPH COUNT 1.3 /CUMM (1.2-3.4); ABSOLUTE MONOCYTE COUNT 0.5 /CUMM (0.10-0.60); BASOPHIL % 0.3 % (0.0-2.0); EOSINOPHIL % 1.9 % (0-5); GRANULOCYTE % 66.2 % (42.2-75.2); MEAN CORPUSCULAR HGB 31.6 PG (27.0-31.0); MEAN CORPUSCULAR HGB CONC 34.6 G/DL (33.0-37.0); MEAN CORPUSCULAR VOLUME 91.3 FL (80.0-94.0); MEAN PLATELET VOLUME 7.5 FL (7.4-10.4); PLATELET COUNT 218 /CUMM (130-400); RBC DISTRIBUTION WIDTH 12.7 % (11.5-14.5); RED BLOOD CELL CT 3.83 /CUMM (4.70-6.10); WHITE BLOOD CELL COUNT 5.8 /CUMM (4.8-10.8)
[2017-03-27 14:24] VITALS: BP 156/90
[2017-03-27] MEDS ORDERED: FLAGYL500 MG PO (15:11)
[2017-03-27] MEDS ORDERED: CEFPODOXIME PR200 M2 PO (15:14)
--- NOTE | 2017-03-27 15:17 | Patient Discharge Instructions ---
Discharge Instructions General Discharge Information You were seen/treated for: Diverticulitis Special Instructions: Please follow up with PCP in 1 week Please follow up with GI, Dr. Day in 1 month Diet Continue normal diet: Yes Recommended Diet: Diabetic, Heart Healthy Activity Full Activity/No Limits: Yes Acute Coronary Syndrome Inclusion Criteria At DC or during hospital stay patient has or had the following: ACS DIAGNOSIS No Discharge Core Measures Meds if any: Prescribed or Continued at Discharge Meds if any: NOT Prescribed or Continued at Discharge Congestive Heart Failure Inclusion Criteria At DC or during hospital stay patient has or had the following: CHF DIAGNOSIS No Discharge Core Measures Meds if any: Prescribed or Continued at Discharge Meds if any: NOT Prescribed or Continued at Discharge Cerebrovascular accident Inclusion Criteria At DC or during hospital stay patient has or had the following: CVA/TIA Diagnosis No Discharge Core Measures Meds if any: Prescribed or Continued at Discharge Meds if any: NOT Prescribed or Continued at Discharge Venous thromboembolism Inclusion Criteria VTE Diagnosis No VTE Type NONE VTE Confirmed by (Test) NONE Discharge Core Measures - Per Current guidelines, there needs to be overlap - treatment for the first 5 days of Warfarin therapy. - If discharged on Warfarin prior to 5 days of - overlap therapy, the patient will need to be - assessed for post discharge needs including - *Post discharge parental anticoagulation - *Warfarin and/or parental anticoagulation education - *Follow up date to check INR post discharge At least 5 days overlap therapy as Inpatient No Meds if any: Prescribed or Continued at Discharge Note: Overlap Therapy is Warfarin and Anticoagulant Meds if any: NOT Prescribed or Continued at Discharge
[2017-03-27 22:23] VITALS: BP 142/68
[2017-03-28 06:34] VITALS: BP 112/78
--- NOTE | 2017-03-28 06:55 | PN- Housestaff ---
CHERY LAST,MONTY 03/28/17 0654: Subjective Follow-up For: diverticulitis Subjective: pt was seen today, reports improvement in abdominal pain and agreed to try soft diet and if tolerate well, will discharge on po abx. he does not want bowel regimen because he ended up getting diarrhea. bowel regimen has been discontinued. Review of Systems Constitutional: Reports: see HPI. Objective Last 24 Hrs of Vital Signs/I&O Vital Signs Date Time Temp Pulse Resp B/P B/P Pulse O2 O2 Flow FiO2 Mean Ox Delivery Rate 03/28 1002 70 156/90 03/28 0634 99.2 75 20 112/78 96 Room Air 03/27 2223 98.2 61 20 142/68 94 Room Air 03/27 1424 98.1 64 20 156/90 96 03/27 1034 75 158/88 Intake & Output 03/28 1600 03/28 0800 03/28 0000 Intake Total 250 Output Total Balance 250 Intake, IV 150 Intake, Oral 100 Number 1 3 Bowel Movements Physical Exam General Appearance: Alert, Oriented X3, Cooperative, No Acute Distress Cardiovascular: Regular Rate, Normal S1, Normal S2 Lungs: Clear to Auscultation, Normal Air Movement Abdomen: Normal Bowel Sounds, Soft, No Tenderness Neurological: Normal Speech Extremities: 1+ edema Current Medications: Current Medications Sig/Bunny Start time Last Medication Dose Route Stop Time Status Admin Acetaminophen 650 MG Q6P PRN 03/26 1000 AC 03/27 PO 0415 Acetaminophen/ 1 TAB Q4P PRN 03/27 0745 AC 03/27 Butalbital/Caffeine PO 0831 Ceftriaxone Sodium 2,000 MG DAILY 03/27 1000 AC 03/28 IV 1002 Docusate Sodium 100 MG DAILY 03/27 1145 DC 03/27 PO 1330 Enoxaparin Sodium 40 MG DAILY 03/26 1000 AC 03/28 SC 1003 Gabapentin 300 MG AT BEDTIME 03/26 2200 AC 03/27 PO 2213 Gemfibrozil 600 MG BID 03/27 1000 AC 03/28 PO 1002 Hydrochlorothiazide 25 MG DAILY 03/26 1512 AC 03/28 PO 1001 Insulin Aspart 0 AT BEDTIME 03/27 2200 AC SC Insulin Aspart 0 TIDAC 03/27 1200 AC 03/28 SC 0830 Insulin Detemir 30 UNITS QPM 03/28 2200 AC SC Insulin Detemir 30 UNITS QPM 03/27 2200 DC SC Insulin Detemir 30 UNITS BID 03/27 1000 DC 03/27 SC 1047 Lisinopril 20 MG DAILY 03/26 1430 AC 03/28 PO 1002 Metronidazole 500 MG IQ8 03/26 1600 AC 03/28 N/A 1 UNIT IV 0830 Morphine Sulfate 2 MG Q4P PRN 03/26 1000 AC 03/27 IV 2216 Omeprazole 40 MG DAILY AC 03/26 0953 AC 03/28 PO 0633 Ondansetron HCl 4 MG .STK-MED ONE 03/27 221 DC IM 03/27 2218 Ondansetron HCl 4 MG Q6P PRN 03/26 0945 AC 03/27 PO 2217 Oxycodone HCl 5 MG Q6P PRN 03/26 1000 AC 03/26 PO 2222 Patient Medication 1 ED .STK-MED ONE 03/27 1404 IN Teaching ED 03/27 1405 Polyethylene Glycol 17 GM DAILY 03/27 1145 DC 03/27 PO 1330 Pravastatin Sodium 20 MG 1700 03/26 1700 AC 03/27 PO 1656 Senna 187 MG AT BEDTIME 03/27 220 DC PO Last 24 Hrs of Lab/Steve Results Last 24 Hrs of Labs/Mics: Laboratory Tests 03/28/17 0700: Anion Gap 12, Estimated GFR > 60, BUN/Creatinine Ratio 11.1 Assessment/Plan Assessment: 61-year-old morbidly obese male with past medical history of hypertension, hyperlipidemia, diabetes mellitus complicated with diabetes neuropathy and retinopathy came in with chief complaint of worsening abdominal pain which is dull and diffuse all over the abdomen worsened in the epigastrium and lower abdomen, previously seen in the emergency department 2 days prior to admission, discharged on by mouth Cipro, Flagyl, Zofran and Percocet Motrin and Tylenol, comes back to the ER after failing outpatient treatment and continuing worsening abdominal pain. The abdominal pain is also associated with alternating diarrhea and constipation, on admission constipated. Vitals on admission Tmax of 96.4, pulse of 68, respiration of 20, blood pressure 156/99, he was 97% saturating on room air. Relevant labs white count normal, H/H stable, platelet normal , electrolytes within normal range, kidney function tests 16/0.9, glucose of 187, calcium 9.2, total protein 7.1 with albumin 4.1, liver function tests normal, amylase 46 and lipase 97, CT abdominal and pelvis showed sigmoid diverticulitis with no pericolonic fluid collection, cholelithiasis, fatty infiltration with hepatomegaly and coronary artery calcification. # Sigmoid diverticulitis. * Advanced to CC3 soft diet * Continue IV ceftriaxone and Flagyl (failed PO cipro and flagy as OP). Plan to dc on cefpodoxime and flagyl to complete total 10 days of abx * F/U blood cultures and urine culture - NGTD, stool cx not received # History of diabetes mellitus with diabetic neuropathy and retinopathy. - Patient follows up with Dr. moffett as outpatient. * Novolog ss tidac/qhs * Continue 30 units of Lantus at bedtime * Continue gabapentin 300 at bedtime # History of hypertension. * Continue lisinopril and hydrochlorothiazide. # history of dyslipidemia. * Continue gemfibrozil Diet: Clear liquid DVT prophylaxis with Lovenox. [id number] in severe pain pathway ordered Full code Problem List: 1. Sigmoid diverticulitis Pain Ratin Pain Location: none Pain Goal: Remain pain free Pain Plan: mild pp Tomorrow's Labs & Rationales: none DVT/Prophylaxis: mechanical, pharmacological MARTY MENDOSA 03/28/17 1038: Attending MD Review Statement Attending Statement Attending MD Statement: examined this patient, discuss w/resident/PA/MFT, agreed w/resident/PA/MFT, discussed with family, reviewed EMR data (avail), discussed with nursing, discussed with case mgmt, reviewed images, amended to note Attending Assessment/Plan: 61 o/m with acute sigmoid diverticulitis failed o/p treatment comes with nausea and increasing abdominal pain, admitted to inpatient medical services, c/w i/v abx switch to PO, advance diet as tolerated. pain control, IVF and dietary fibre. referral to GI at d/c o/p f/u. anticipate dc soon.
--- NOTE | 2017-03-28 10:36 | Discharge Summary ---
Visit Information Visit Dates Admission Date: 03/26/17 Discharge Date: 03/28/17 Hospital Course Course Attending Physician: MARTY MENDOSA MD Primary Care Physician: BRUNA LAST,ADAM Aponte Hospital Course: 61-year-old morbidly obese male with past medical history of hypertension, hyperlipidemia, diabetes mellitus complicated with diabetes neuropathy and retinopathy came in with chief complaint of worsening abdominal pain which is dull and diffuse all over the abdomen worsened in the epigastrium and lower abdomen, previously seen in the emergency department 2 days prior to admission, discharged on by mouth Cipro, Flagyl, Zofran and Percocet Motrin and Tylenol, comes back to the ER after failing outpatient treatment and continuing worsening abdominal pain. The abdominal pain is also associated with alternating diarrhea and constipation, on admission constipated. Vitals on admission Tmax of 96.4, pulse of 68, respiration of 20, blood pressure 156/99, he was 97% saturating on room air. Relevant labs white count normal, H/H stable, platelet normal , electrolytes within normal range, kidney function tests 16/0.9, glucose of 187, calcium 9.2, total protein 7.1 with albumin 4.1, liver function tests normal, amylase 46 and lipase 97, CT abdominal and pelvis showed sigmoid diverticulitis with no pericolonic fluid collection, cholelithiasis, fatty infiltration with hepatomegaly and coronary artery calcification. # Sigmoid diverticulitis * Diet was advanced as tolerated * Received IV ceftriaxone and Flagyl (failed PO cipro and flagy as OP) inpatient , discharged on cefpodoxime and flagyl to complete total 10 days of abx * F/U blood cultures and urine culture - NGTD, stool sample not received # History of diabetes mellitus with diabetic neuropathy and retinopathy. - Patient follows up with Dr. moffett as outpatient. * Novolog ss tidac/qhs * Continue 30 units of Lantus at bedtime * Continue gabapentin 300 at bedtime # History of hypertension. * Continue lisinopril and hydrochlorothiazide # history of dyslipidemia. * Continue gemfibrozil Diet: CC3 DVT prophylaxis with Lovenox. [id number] in severe pain pathway ordered Full code Allergies: Coded Allergies: No Known Allergies (03/26/17) Disposition Summary Disposition Principal Diagnosis: Sigmoid diverticulitis Additional Diagnosis: HTN DM HLD Discharge Disposition: home or self care Discharge Instructions General Discharge Information Code Status: Full Code Patient's Diet: CC3 Patient's Activity: As tolerated Follow-Up Instructions/Appts: F/U with PCP in 1 week F/U with Dr. Day (GI) in 1 month for colonoscopy Medications at Discharge Discharge Medications: Stop taking the following medications: Ciprofloxacin HCl (Cipro) 500 MG TABLET ORAL TWICE DAILY Qty = 20 Gabapentin (Gabapentin) 300 MG CAPSULE ORAL THREE TIMES DAILY Qty = 30 Continue taking these medications: Ondansetron (Zofran Odt) 4 MG TAB.RAPDIS 1 Tablet ORAL EVERY SIX HOURS as needed for NAUSEA Qty = 20 Oxycodone HCl/Acetaminophen (Percocet 5-325 MG Tablet) 5 MG-325 MG TABLET 1 Tablet ORAL EVERY 4-6 HOURS as needed for BREAKTHROUGH PAIN Qty = 10 Insulin Glargine,Hum.rec.anlog (Lantus Solostar) 100 UNIT/ML (3 ML) INSULN.PEN 30 Unit Inject into fatty tissue Every night Qty = 45 Omeprazole (Omeprazole) 20 MG CAPSULE.DR 1 Capsule ORAL DAILY Qty = 30 Lisinopril/Hydrochlorothiazide (Lisinopril-Hctz 20-25 MG Tab) 20 MG-25 MG TABLET 1 Tablet ORAL DAILY Qty = 30 Pravastatin Sodium (Pravastatin Sodium) 20 MG TABLET 1 Tablet ORAL DAILY Qty = 90 Gemfibrozil (Gemfibrozil) 600 MG TABLET 1 Tablet ORAL TWICE DAILY Qty = 180 Metformin HCl (Metformin HCl) 1,000 MG TABLET 1 Tablet ORAL TWICE DAILY Qty = 180 Insulin Aspart, Recombinant (Novolog Flexpen) 100 UNIT/ML INSULN.PEN Qty = 90 Metronidazole (Flagyl) 500 MG TABLET 1 Tablet ORAL THREE TIMES DAILY Qty = 30 Instructions: Please take until 04/04/17 This prescription has been renewed Start taking the following new medications: Gabapentin (Gabapentin) 300 MG CAPSULE 1 Capsule ORAL BEDTIME Qty = 90 No Refills Cefpodoxime Proxetil (Cefpodoxime Proxetil) 200 MG TABLET 1 Tablet ORAL TWICE DAILY Days = 10 No Refills Instructions: Please take until 04/04/17 Copies To: BRUNA LAST,ADAM Aponte; SAVITA LAST,IVONNE Tejeda MD Review Statement Documenting Attending: MARTY MENDOSA MD
[2017-03-28 13:46] VITALS: BP 158/84
== END 2017-03-28 15:20 | DRG 392 ==
LOC: ERH 04:46 → 2NA 08:08 → ERHI 08:08 → ENRESERV 19:15 → 2NA 20:19 → ENPENDDIS 03-28 14:57 → 2NA 03-28 15:20
PROVIDERS: Emergency Medicine; Internal Medicine; ADMIT Internal Medicine
DX: K57.32 Diverticulitis of large intestine without perforation or abscess without bleeding (principal); E11.40 Type 2 diabetes mellitus with diabetic neuropathy, unspecified; Z68.41 Body mass index [BMI] 40.0-44.9, adult; E66.01 Morbid (severe) obesity due to excess calories; I10 Essential (primary) hypertension; E78.5 Hyperlipidemia, unspecified; E11.319 Type 2 diabetes mellitus with unspecified diabetic retinopathy without macular edema; G51.0 Bell's palsy
CPT/HCPCS: 2NAP; 36415; 74177; 81001; 82436; 87040; 87045; 87086; 93005; 93010; 96361; 96374; 96375; 96376; J0696; J1650; J1815; J2405; J2550; J3101; J7042